=== PATIENT | female | born 1950 | race Caucasian/White ===

== ENCOUNTER → 2019-03-06 | Outpatient (CLI) | payer MEDICARE | LOC: COL.RAD 07:42 | DX: N95.0 Postmenopausal bleeding (principal) | CPT/HCPCS: Q9967 ==

== ENCOUNTER 2019-03-21 12:53 | Inpatient (IN) | payer MEDICARE ==
[~2019-03-21] VITALS: Ht 167.6 cm; Wt 81.8 kg
[2019-03-29] VITALS (12 sets, daily range): BP systolic 109–150; BP diastolic 70–92; PULSE 66–119; TEMP 97.4–98.2
[2019-03-29] MEDS ORDERED: COREG 25MG25 MG/TAB PO (08:17)
[2019-03-29] MEDS ORDERED: K-TAB10 PO (08:17)
[2019-03-29] MEDS ORDERED: BETAPACE 80MG80 MG PO (08:18)
[2019-03-29] MEDS ORDERED: LASIX 40MG TABL40 MG PO (08:19)
--- NOTE | 2019-03-29 15:39 | NUR ---
Patient alert and oriented, answers questions appropriately. See assessment. Abdomen with lap sites CDI, no redness or drainage noted. Ostomy site with stoma pink and protruding. Bowel sounds hypoactive. No flatus in ostomy pouch. No c/o at this time.
--- NOTE | 2019-03-29 20:34 | NUR ---
PT IN BED WITH HOB ELEVATED TO 45 DEGREE ANGLE. PT HAS ALREADY WALKED TO MEDICAL NURSES' STATION AND THEN TO SURGICAL NURSES' STATION AND BACK TO ROOM. PT DENIES PAIN OR DISCOMFORT AT THIS TIME. PT'S INCISION SITES CLEAN, DRY, AND INTACT. NO NEEDS AT THIS TIME, CALL LIGHT WITHIN REACH.
--- NOTE | 2019-03-29 22:37 | NUR ---
PT'S O2 SATS WERE AT 87% ON ROOM AIR. PT THOUGHT THAT IT WAS BECAUSE HER HANDS ARE COLD. PLACED O2 AT 2L/NC AND O2 SATS WENT UP TO 94%. CALLED RT AND ADVISED RT THAT O2 WAS PLACED ON PT BECAUSE O2 AT 87% ON RA AND NOW WITH O2 ON AT 94%. PT RESTING IN BED WITH NO NEEDS AT THIS TIME. CALL LIGHT WITHIN REACH.
[2019-03-30 01:10] VITALS: BP 107/55; PULSE 127; TEMP 98.4
--- NOTE | 2019-03-30 01:52 | NUR ---
CALLED DR. DEL ANGEL IN REFERENCE TO PT'S HEART RATE AT 130. ADVISED BP 107/55, O2 ON ROOM AIR WAS 84%, PLACED ON 2L/NC AND BROUGHT O2 SATs UP TO 92%. DR. DEL ANGEL ORDERED A STAT EKG AND TO CONSULT HOSPITALIST. CALLED MIRTA SAUNDERS TO ADVISED OF EKG AND CALLED DR. BALL OF HOSPITALIST CONSULT. RECEIVED ORDER FOR TELEMETRY. PLACED TELEMETRY ON PT AND ALSO EKG DONE. CALLED DR. BALL WITH RESULTS. DR. BALL ADVISED THAT HE WILL REVIEW HER MED ANNA AND WILL PUT IN MEDICATION FOR PT.
--- NOTE | 2019-03-30 02:37 | NUR ---
CALLED DR. BALL AND ADVISED THAT PT'S HEART RATE HAS BEEN GOING FROM [address] BALL ADVISED THAT IF HEART RATE GOES UP TO 130> THEN GIVEN ONE MORE DOSE OF LOPRESSOR 5MG IV.
--- NOTE | 2019-03-30 03:26 | NUR ---
RECEIVED ORDERS TO PLACE PT ON TELEMETRY PROTOCOL FROM DR. BALL.
[2019-03-30 03:59] VITALS: BP 107/70; PULSE 123; TEMP 98.2
--- NOTE | 2019-03-30 06:40 | NUR ---
PT RESTING/SLEEPING IN BED. PT HAD C/O PAIN AT INCISION SITE RATED A 5/10. GAVE NORCO 5/325MG PO 1 TAB. PT'S HEART RATE STAYED BELOW 123. DR. BALL WAS UPDATED ON PT. NO NEW ORDERS. CALL LIGHT WITHIN REACH.
[2019-03-30 07:54] VITALS: BP 114/82; PULSE 90; TEMP 98
[2019-03-30 08:19] LABS: BASO % 0.3 % (0.0-2.0); EOS % 0.1 % (0-4.0); GRAN # 8.3 (1.4-6.5); GRAN % 71.6 % (42.2-75.2); HEMATOCRIT 41.9 % (37.0-47.0); LYMPH # 2.3 (1.2-3.4); LYMPH % 19.5 % (20.0-51.0); MEAN CELL VOLUME 90 fl (80.0-100.0); MEAN CORPUSCULAR HEMOGLOBIN 30 pg (27.0-31.0); MEAN CORPUSCULAR HGB CONC 33 g/dl (33.0-37.0); MEAN PLATELET VOLUME 8.7 fl (7.4-10.4); MONO # 0.9 (0.1-0.6); MONO % 8.2 % (1.7-9.3); PLATELET COUNT 337 K/mm3 (130-400); RED BLOOD COUNT 4.67 M/mm3 (4.10-5.30); REDCELL DISTRIBUTION WIDTH-CV 14.6 % (11.5-14.5)
[2019-03-30 08:28] LABS: CALCIUM 8.7 mg/dL (8.4-10.2); CREATININE, serum 0.82 (0.52-1.25); MAGNESIUM 2.1 mg/dL (1.6-2.3); POTASSIUM 4.9 mmol/L (3.4-5.0)
[2019-03-30 08:58] LABS: TSH w REFLEX 0.575 uIU/mL (0.465-4.680)
--- NOTE | 2019-03-30 09:45 | NUR ---
Patient alert and oriented, answers questions appropriately. See assessment. Abdomen with lap sites CDI, no redness or drainage noted. Abdomen soft, non tender, non distended. Bowel sounds active x4 quads. Colostomy site with stoma pink and protruding. Flatus and minimal amount of bloody drainage noted in bag. PAC lap sites with edges well approximated, no redness or drainage noted. No c/o pain or discomfort.
--- NOTE | 2019-03-30 10:23 | NUR ---
Dr Oro notified of consult.
[2019-03-30 11:54] VITALS: BP 119/75; PULSE 65; TEMP 97.3
[2019-03-30] MEDS ORDERED: ELIQUIS 5MG PO (13:39)
== END 2019-03-30 14:20 | disposition home or self-care (01) | DRG 329 ==
LOC: INPTSU 03-29 06:57 → COL.AMSURD 03-29 10:00 → EDSTATUS 03-29 10:00 → SDCO 03-29 10:00 → SURG 03-29 10:00
PROVIDERS: Hospitalist; ADMIT Surgery
PROC: 02HV33Z Insertion of Infusion Device into Superior Vena Cava, Percutaneous Approach (ICD-10-PCS; 2019-03-29)
PROC: 0D1N4Z4 Bypass Sigmoid Colon to Cutaneous, Percutaneous Endoscopic Approach (ICD-10-PCS; principal; 2019-03-29 10:00)
PROC: 0JH60WZ Insertion of Totally Implantable Vascular Access Device into Chest Subcutaneous Tissue and Fascia, Open Approach (ICD-10-PCS; 2019-03-29 10:00)
DX: C20 Malignant neoplasm of rectum (principal); J96.01 Acute respiratory failure with hypoxia; N82.3 Fistula of vagina to large intestine; I48.92 Unspecified atrial flutter; I97.191 Other postprocedural cardiac functional disturbances following other surgery; I10 Essential (primary) hypertension; I48.91 Unspecified atrial fibrillation; D72.829 Elevated white blood cell count, unspecified; Z88.2 Allergy status to sulfonamides; Y83.9 Surgical procedure, unspecified as the cause of abnormal reaction of the patient, or of later complication, without mention of misadventure at the time of the procedure; Y92.239 Unspecified place in hospital as the place of occurrence of the external cause
CPT/HCPCS: 99222; A4314; C1788; J1100; J1885; J2250; J2405; J2704; J2710; J3010; J7120